=== PATIENT | female | born 1970 | race Caucasian/White ===

== ENCOUNTER 2018-05-21 10:08 | Day surgery (SDC) | payer OTHER ==
[2018-05-21] MEDS ORDERED: MIDAZOLAM 1 MG/ML 2 ML INJ ×2 (11:44)
[2018-05-21] MEDS ORDERED: FENTAnyl 50 MCG/ML VIAL (11:44)
== END 2018-05-21 14:29 | disposition home or self-care (01) ==
LOC: GIL 10:08
DX: R19.4 Change in bowel habit (principal); D12.5 Benign neoplasm of sigmoid colon; K64.8 Other hemorrhoids; I10 Essential (primary) hypertension; E11.9 Type 2 diabetes mellitus without complications
CPT/HCPCS: 45380; 82962; 88305